=== PATIENT | male | born 1960 | race Caucasian/White ===

== ENCOUNTER 2019-03-20 17:50 | Emergency (ER) | payer OTHER ==
[2019-03-20 18:02] VITALS: BP 131/89; PULSE 84; BMI 27.4
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
== END 2019-03-20 19:45 | disposition home or self-care (01) ==
LOC: JERFT 17:50
DX: S49.81XA Other specified injuries of right shoulder and upper arm, initial encounter (principal); V49.49XA Driver injured in collision with other motor vehicles in traffic accident, initial encounter; Y92.414 Local residential or business street as the place of occurrence of the external cause; Y93.89 Activity, other specified; Y99.8 Other external cause status
CPT/HCPCS: 73030-TC-RT-FY; 99281-25